=== PATIENT | male | born 1940 | race Caucasian/White ===

== ENCOUNTER → 2023-03-19 09:09 | Outpatient (REF) | payer MEDICARE, OTHER, SELFPAY | LOC: MRI 3T 09:09 | PROVIDERS: ATTENDING PHYSICIAN Physician Assistant Medical; FAMILY PHYSICIAN Family Medicine | DX: M47.817 Spondylosis without myelopathy or radiculopathy, lumbosacral region (principal) | CPT/HCPCS: 72148 ==

== ENCOUNTER → 2023-05-29 08:02 | Outpatient (REF) | payer MEDICARE, OTHER, SELFPAY ==
[2023-05-29 11:40] LABS: ALT (SGPT) 23 U/L (0-50); AST (SGOT) 25 U/L (17-59); Albumin 4.2 g/dl (3.5-5.0); Alkaline Phosphatase 92 U/L (38-126); Blood Urea Nitrogen 24 mg/dl (9-20); Calcium 9.4 mg/dl (8.4-10.2); Carbon Dioxide 31 mmol/L (22-30); Chloride 98 mmol/L (98-107); Glucose 181 mg/dl (70-99); HDL Cholesterol 99 mg/dl; LDL Cholesterol, Calculated 57 mg/dl; Potassium 4.6 mmol/L (3.5-5.1); Sodium 137 mmol/L (135-145); Total Bilirubin 0.6 mg/dl (0.2-1.3); Total Cholesterol 171 mg/dl (50-199); Triglyceride 76 mg/dl (10-149); Very Low Density Lipoprotein 15 mg/dl (0-30); eGFR > 60.00
[2023-05-29 11:54] LABS: Free T4 1.02 ng/dl (0.78-2.19)
[2023-05-29 12:05] LABS: Free T3 3.21 pg/ml (2.77-5.27)
[2023-05-29 12:08] LABS: TSH 0.36 uIU/ml (0.47-4.68)
[2023-05-29 12:20] LABS: Glycohemoglobin (HgbA1c) 8.1 % (4.0-5.6)
== END ==
LOC: HWLAB 08:02
PROVIDERS: ATTENDING PHYSICIAN Internal Medicine Endocrinology, Diabetes & Metabolism; FAMILY PHYSICIAN Family Medicine
DX: E11.65 Type 2 diabetes mellitus with hyperglycemia (principal); Z79.4 Long term (current) use of insulin; E78.5 Hyperlipidemia, unspecified; E05.90 Thyrotoxicosis, unspecified without thyrotoxic crisis or storm
CPT/HCPCS: 36415; 80053; 80061; 83036; 84439; 84443; 84481

== ENCOUNTER → 2023-08-07 08:34 | Outpatient (REF) | payer MEDICARE, OTHER, SELFPAY ==
[2023-08-07 09:47] LABS: % Basophils 0.4 % (0-2); % Eosinophils 2.8 % (0-6); % Immature Granulocytes 0.2 % (0-0.5); % Lymphocytes 30.1 % (20.5-51.1); % Monocytes 7.3 % (1.7-9.3); % Neutrophils 59.2 % (42.2-75.2); Absolute Eosinophils 0.2 10^3/uL (0-0.7); Absolute Lymphocytes 1.6 10^3/uL (1.2-3.4); Absolute Monocytes 0.4 10^3/uL (0.1-0.6); Absolute Neutrophils 3.2 10^3/uL (1.4-6.5); Hematocrit 43.8 % (39.0-52.0); Hemoglobin 14.7 g/dL (13.0-18.0); Mean Corp Hgb Conc. 33.6 g/dL (33.0-37.0); Mean Corpuscular Hgb 31.4 pg (27.0-31.0); Mean Corpuscular Volume 93.6 fL (80.0-94.0); Nucleated Red Blood Cells % 0 % (-); Platelet Count 171 10^3/uL (130-400); Red Blood Cell Count 4.68 10^6/uL (4.70-6.10); Red Cell Dist. Width 13.2 % (11.5-14.5); White Blood Cell Count 5.3 10^3/uL (4.8-10.8)
[2023-08-07 10:13] LABS: INR 1.35; PT 16.8 Sec (11.4-14.6)
[2023-08-07 10:14] LABS: APTT 35.4 Sec (23.4-35.0)
[2023-08-07 10:56] LABS: ALT (SGPT) 27 U/L (0-50); AST (SGOT) 47 U/L (17-59); Albumin 4.4 g/dl (3.5-5.0); Alkaline Phosphatase 88 U/L (38-126); Blood Urea Nitrogen 23 mg/dl (9-20); Calcium 9.3 mg/dl (8.4-10.2); Carbon Dioxide 28 mmol/L (22-30); Chloride 104 mmol/L (98-107); Glucose 107 mg/dl (70-99); Potassium 4.2 mmol/L (3.5-5.1); Sodium 140 mmol/L (135-145); Total Bilirubin 0.6 mg/dl (0.2-1.3); Total Protein 7.1 g/dl (6.3-8.2); eGFR > 60.00
== END ==
LOC: HWLAB 08:34
PROVIDERS: ATTENDING PHYSICIAN Physical Medicine & Rehabilitation; FAMILY PHYSICIAN Family Medicine
DX: Z01.812 Encounter for preprocedural laboratory examination (principal); K92.2 Gastrointestinal hemorrhage, unspecified; I10 Essential (primary) hypertension
CPT/HCPCS: 36415; 80053; 85025; 85610; 85730

== ENCOUNTER → 2023-09-04 09:27 | Outpatient (REF) | payer MEDICARE, OTHER, SELFPAY ==
[2023-09-04 12:41] LABS: Glycohemoglobin (HgbA1c) 8.7 % (4.0-5.6)
== END ==
LOC: HWLAB 09:27
PROVIDERS: ATTENDING PHYSICIAN Physical Medicine & Rehabilitation; FAMILY PHYSICIAN Family Medicine
DX: Z01.812 Encounter for preprocedural laboratory examination (principal); E11.9 Type 2 diabetes mellitus without complications
CPT/HCPCS: 83036

== ENCOUNTER → 2023-10-30 11:26 | Outpatient (REF) | payer MEDICARE, OTHER, SELFPAY | LOC: HWRAD 11:26 | PROVIDERS: ATTENDING PHYSICIAN Internal Medicine Critical Care Medicine; FAMILY PHYSICIAN Family Medicine | DX: J45.40 Moderate persistent asthma, uncomplicated (principal) | CPT/HCPCS: 71046 ==

== ENCOUNTER 2024-01-06 16:15 | Outpatient (RCR) | payer MEDICARE, OTHER, SELFPAY | END 2024-01-10 23:59 | disposition home or self-care (01) | LOC: PURB 16:15 | PROVIDERS: ATTENDING PHYSICIAN Internal Medicine Critical Care Medicine; FAMILY PHYSICIAN Family Medicine | DX: J45.40 Moderate persistent asthma, uncomplicated (principal); J98.4 Other disorders of lung | CPT/HCPCS: 94625; G0237 ==

== ENCOUNTER 2024-02-10 16:15 | Outpatient (RCR) | payer MEDICARE, OTHER, SELFPAY | END 2024-02-10 23:59 | disposition home or self-care (01) | LOC: PURB 16:15 | PROVIDERS: ATTENDING PHYSICIAN Internal Medicine Critical Care Medicine; FAMILY PHYSICIAN Family Medicine | DX: J45.40 Moderate persistent asthma, uncomplicated (principal); J98.4 Other disorders of lung | CPT/HCPCS: 94625 ==

== ENCOUNTER → 2024-02-20 09:18 | Outpatient (REF) | payer MEDICARE, OTHER, SELFPAY ==
[2024-02-20 12:40] LABS: ALT (SGPT) 23 U/L (0-50); AST (SGOT) 22 U/L (17-59); Albumin 4.2 g/dl (3.5-5.0); Alkaline Phosphatase 90 U/L (38-126); Blood Urea Nitrogen 18 mg/dl (9-20); Calcium 8.4 mg/dl (8.4-10.2); Carbon Dioxide 30 mmol/L (22-30); Chloride 101 mmol/L (98-107); Glucose 177 mg/dl (70-99); HDL Cholesterol 92 mg/dl; LDL Cholesterol, Calculated 75 mg/dl; Potassium 4.4 mmol/L (3.5-5.1); Sodium 138 mmol/L (135-145); Total Bilirubin 0.5 mg/dl (0.2-1.3); Total Cholesterol 180 mg/dl (50-199); Total Protein 6.5 g/dl (6.3-8.2); Triglyceride 66 mg/dl (10-149); Very Low Density Lipoprotein 13 mg/dl (0-30); eGFR > 60.00
[2024-02-20 13:05] LABS: TSH 0.25 uIU/ml (0.47-4.68)
[2024-02-20 13:09] LABS: Microalbumin, Random Urine 1.1 mg/dl (0.6-1.7)
[2024-02-20 13:14] LABS: Microalbumin/creatinine Ratio 20.4 mg/g
[2024-02-20 14:05] LABS: Glycohemoglobin (HgbA1c) 9.3 % (4.0-5.6)
== END ==
LOC: HWLAB 09:18
PROVIDERS: ATTENDING PHYSICIAN Internal Medicine Endocrinology, Diabetes & Metabolism; FAMILY PHYSICIAN Family Medicine
DX: E11.65 Type 2 diabetes mellitus with hyperglycemia (principal); Z79.4 Long term (current) use of insulin
CPT/HCPCS: 36415; 80053; 80061; 82043; 82570; 83036; 84443

== ENCOUNTER 2024-03-11 16:15 | Outpatient (RCR) | payer MEDICARE, OTHER, SELFPAY | END 2024-03-12 09:39 | disposition home or self-care (01) | LOC: PURB 16:15 | PROVIDERS: ATTENDING PHYSICIAN Internal Medicine Critical Care Medicine; FAMILY PHYSICIAN Family Medicine | DX: J45.40 Moderate persistent asthma, uncomplicated (principal); J98.4 Other disorders of lung | CPT/HCPCS: 94625 ==

== ENCOUNTER 2024-05-28 10:44 | Emergency (ER) | payer MEDICARE, OTHER, SELFPAY ==
[2024-05-28 10:52] VITALS: BP 128/75
--- NOTE | 2024-05-28 11:18 | ED.GENMED ---
History of Present Illness
<Deloris Matt PA-C - Last Filed: 05/28/24 16:32>
General
Chief Complaint: Circulation Problem
Source: patient and family
Exam Limitations: none
Time Seen by Provider: 05/28/24 11:04
History of Present Illness
History of Present Illness:
83yoM with a history of prior DVT/PE on Xarelto, insulin dependent diabetes, and dementia presenting with his for evaluation of left foot pain. Symptoms began fairly suddenly around 5pm last night. He started to experience a pain in his leg
that radiated down into his foot. noticed that his foot started to look discolored this morning. She called the PCP who advised him to go to the ED for evaluation.
Past History
<Deloris Matt PA-C - Last Filed: 05/28/24 16:32>
Past History
ED Past Medical History: Arrthythmia, HTN, NIDDM and Other (asthma, DVT)
ED Past Surgical History: Negative Cardiac
Social History
Tobacco: Non-smoker
Alcohol: None
Drug: None
Personal:
Living: with family
Employment: Retired
Family History
Family History: Other (Noncontributory)
Phy Exam
<Deloris Matt PA-C - Last Filed: 05/28/24 16:32>
General Physical Exam
General Presentation: well appearing and no apparent distress
General age: appears stated age
General Skin: warm and dry
General Habitus: normal
General Mental: alert
ENT Exam
ENT Exam: normocephalic
Pulmonary Exam
Pulmonary Exam: no respiratory distress
Neurological Exam
Neurological Exam: alert
Musculoskeletal Exam
Musculoskeletal Exam: other (There is what appears to be ecchymosis noted to the dorsum of the L foot with tenderness to light touch. No open wounds noted. No pitting edema to extremity and there is no calf tenderness. Strong DP doppler signal
noted. )
Psychiatric Exam
Psychiatric Exam: normal mood/affect
Course
<Deloris Matt PA-C - Last Filed: 05/28/24 16:32>
Orders/Labs/Results
Orders:
Orders
05/28/24 11:16
CR Foot - Left Min 3 Views Urgent
Comment:
Reason For Exam: pain, bruising
05/28/24 11:22
Lower Ext Arterial & SHANIA US [US Periph Art LOWER Ext w SHANIA] Urgent
Comment:
Reason For Exam: L foot pain/discoloration
05/28/24 11:25
Complete Blood Count/With Diff Urgent
Comprehensive Metabolic Panel Urgent
PTT Urgent
Prothrombin Time Urgent
05/28/24 14:29
Ice Pack-Treatment DIRECTED
Location: R foot
Mendez Wrap Right-Treatment ONCE
Oxycodone/Acetaminophen [Percocet 5/325] 1 tablet PO NOW STA
Abnormal Lab Results
05/28/24
11:25
RBC 4.47 L 10^6/uL
(4.70-6.10)
MCV 96.4 H fL
(80.0-94.0)
MCH 32.2 H pg
(27.0-31.0)
Absolute Lymphs (auto) 1.0 L 10^3/uL
(1.2-3.4)
Lymphocytes % 19.5 L %
(20.5-51.1)
PT 18.2 H Sec
(11.4-14.6)
APTT 41.7 H Sec
(23.4-35.0)
BUN 25 H mg/dl
(9-20)
Glucose 387 H mg/dl
(70-99)
05/28/24 11:25
05/28/24 11:25
Vital Signs
Initial and Last Documented VS:
Initial Vital Signs
Temp Pulse Resp BP Pulse Ox
97.5 F 96 18 128/75 94
05/28/24 10:52 05/28/24 10:52 05/28/24 10:52 05/28/24 10:52 05/28/24 10:52
Last Documented Vital Signs
Temp Pulse Resp BP Pulse Ox
97.5 F 81 16 110/74 95
05/28/24 10:52 05/28/24 13:43 05/28/24 13:43 05/28/24 13:43 05/28/24 13:43
Carlottalt;Claudio Zhang, - Last Filed: 05/28/24 17:12>
Orders/Labs/Results
Orders:
Orders
05/28/24 11:16
CR Foot - Left Min 3 Views Urgent
Comment:
Reason For Exam: pain, bruising
05/28/24 11:22
Lower Ext Arterial & SHANIA US [US Periph Art LOWER Ext w SHANIA] Urgent
Comment:
Reason For Exam: L foot pain/discoloration
05/28/24 11:25
Complete Blood Count/With Diff Urgent
Comprehensive Metabolic Panel Urgent
PTT Urgent
Prothrombin Time Urgent
05/28/24 14:29
Ice Pack-Treatment DIRECTED
Location: R foot
Mendez Wrap Right-Treatment ONCE
Oxycodone/Acetaminophen [Percocet 5/325] 1 tablet PO NOW STA
Abnormal Lab Results
05/28/24
11:25
RBC 4.47 L 10^6/uL
(4.70-6.10)
MCV 96.4 H fL
(80.0-94.0)
MCH 32.2 H pg
(27.0-31.0)
Absolute Lymphs (auto) 1.0 L 10^3/uL
(1.2-3.4)
Lymphocytes % 19.5 L %
(20.5-51.1)
PT 18.2 H Sec
(11.4-14.6)
APTT 41.7 H Sec
(23.4-35.0)
BUN 25 H mg/dl
(9-20)
Glucose 387 H mg/dl
(70-99)
05/28/24 11:25
05/28/24 11:25
Vital Signs
Initial and Last Documented VS:
Initial Vital Signs
Temp Pulse Resp BP Pulse Ox
97.5 F 96 18 128/75 94
05/28/24 10:52 05/28/24 10:52 05/28/24 10:52 05/28/24 10:52 05/28/24 10:52
Last Documented Vital Signs
Temp Pulse Resp BP Pulse Ox
97.5 F 81 16 110/74 95
05/28/24 10:52 05/28/24 13:43 05/28/24 13:43 05/28/24 13:43 05/28/24 13:43
<Deloris Matt PA-C - Last Filed: 05/28/24 16:32>
MDM/Problems Addressed
Differential Diagnosis Includes:
83yoM here with atraumatic L foot pain and discoloration since last night. Currently on Xarelto for history of VTE. Dorsum of the L foot appears ecchymotic on exam with tenderness. There is a strong doppler DP signal noted. Differential diagnosis
includes: contusion, fracture, doubt arterial occlusion, no clinical evidence of infection
Initial ED plan: Check CBC, CMP, coags, foot x-rays, and arterial duplex.
<Deloris Matt PA-C - Last Filed: 05/28/24 16:32>
*Critical Care Note
Total Time (30-74mins, 75-104mins- exclusive of procedures): Not Applicable
<Deloris Matt PA-C - Last Filed: 05/28/24 16:32>
Update Note
Update Note:
Arterial duplex shows multiphasic flow throughout the left leg with no focal or flow-limiting stenosis. There is multiphasic pedal flow. No fractures seen on x-rays per my interpretation, formal radiology report pending. No indication for
hospitalization. Supportive care discussed including RICE. Prescription for oxycodone provided for breakthrough pain. Advised close follow-up with PCP and orthopedics next week. ED return precautions reviewed. Patient and in agreement with
plan and patient discharged in stable condition.
ED Attending Note
<Deloris Matt PA-C - Last Filed: 05/28/24 16:32>
-
Portions of this chart may have been created with voice recognition software.� Occasional wrong word or��sound alike� substitutions may have occurred due to the inherent limitations of voice recognition software.
<Claudio Zhang, - Last Filed: 05/28/24 17:12>
ED Attending Note
Patient seen and examined by attending physician: Yes
I performed the substantive portion of visit, reviewed & personally made and approve the management plan that is documented in note by myself or WILFREDO.: Yes
ED Attending Note:
I agree with Deloris's note
Patient complaining of pain and discoloration left foot.
Exam
Patient has ecchymotic discoloration of lateral and anterior foot lower extremity. Pulses are not readily palpable but are briskly noted with Doppler. Foot is warm, good capillary refill.
Suspect the patient has pain and discoloration from a injury that he may not recall given his dementia. Ankle-brachial indexes are normal.
Discharge Plan
Departure
Patient Disposition: Home (Routine Discharge)
Date of Disposition: 05/28/24
Time of Disposition: 14:30
Patient with high blood pressure during this ER visit?: No
Discharge Problem:
Traumatic ecchymosis of left foot
Instructions: Contusion
Prescriptions:
New
oxycodone 5 mg tablet
5 mg PO Q8H PRN (Reason: Pain) Qty: 9 0RF
No Action
lorazepam 0.5 MG tablet
0.5 mg PO TID
metformin 500 MG tablet
1,000 mg PO BID
atorvastatin 40 MG tablet
40 mg PO QPM
fluticasone propion-salmeterol [Advair Diskus] 1 DISK blister with device
1 puff inhalation BID
albuterol sulfate [Proventil] 2.5 MG/3 ML solution for nebulization
2.5 mg inhalation PRN PRN (Reason: asthma)
sildenafil [Viagra] 50 MG tablet
100 mg PO PRN PRN (Reason: ed)
Patient Comments:
patient unsure of last dose taken
fluvoxamine 50 MG tablet
100 mg PO QPM
epinephrine [EpiPen] 0.3 MG/0.3/SYRINGE auto-injector
0.3 mg IM PRN PRN (Reason: allergic reaction)
Patient Comments:
last used about 2 months ago
clonidine HCl 0.1 MG tablet
0.1 mg PO BID
insulin glargine [Lantus Solostar U-100 Insulin] 300 UNITS/3 ML insulin pen
33 units SC HS
insulin aspart U-100 [Novolog FlexPen U-100 Insulin] 300 UNITS/3 ML insulin pen
0 units SC DAILY
Patient Comments:
80-120 5units; 121-150 6 units; 151-200 7 units; >200 8 units (noted 10/29/15).
pantoprazole 40 MG tablet,delayed release (DR/EC)
40 mg PO DAILY Qty: 30 0RF
rivaroxaban [Xarelto] 20 MG tablet
20 mg PO QPM Qty: 0 0RF
Rx Instructions:
Hold for additional 14 days, then ok to resume.
Referrals:
Sebas Evans MD [Family Provider] -
Walter Gongora MD [Active] -
Activity Restrictions/Additional Instructions:
Rest, ice, compress, and elevate your leg to help with swelling. Take Tylenol 650mg every 6 hours as needed. Take oxycodone only as needed for severe breakthrough pain.
Please follow-up with your family doctor and orthopedics next week. Return to the ER with any new or worsening symptoms.
Interventions
Interventions:
*Risk Screen - Suicide Last Done: 05/28/24 10:52
*General Assessment Last Done: 05/28/24 10:52
*Neglect/Abuse Screening Last Done: 05/28/24 11:30
*ED- Fall Risk Assessment Last Done: 05/28/24 11:30
*ED COVID-19 Vaccine History Last Done: 05/28/24 11:30
*Nursing Disposition Last Done: 05/28/24 14:57
ED-Peripheral Vascular Assessment Last Done: 05/28/24 11:33
Discharge Date and Time
Discharge Date/Time: 05/28/24 14:57
Print Language: SWISS
[2024-05-28 11:29] VITALS: BP 90/62; BMI 22.4
[2024-05-28 11:38] LABS: % Basophils 0.4 % (0-2); % Eosinophils 1.1 % (0-6); % Immature Granulocytes 0.2 % (0-0.5); % Lymphocytes 19.5 % (20.5-51.1); % Monocytes 6.3 % (1.7-9.3); % Neutrophils 72.5 % (42.2-75.2); Absolute Eosinophils 0.1 10^3/uL (0-0.7); Absolute Monocytes 0.3 10^3/uL (0.1-0.6); Absolute Neutrophils 3.8 10^3/uL (1.4-6.5); Hematocrit 43.1 % (39.0-52.0); Hemoglobin 14.4 g/dL (13.0-18.0); Mean Corp Hgb Conc. 33.4 g/dL (33.0-37.0); Mean Corpuscular Hgb 32.2 pg (27.0-31.0); Mean Corpuscular Volume 96.4 fL (80.0-94.0); Mean Platelet Volume 9.9 fL (7.4-10.4); Nucleated Red Blood Cells % 0 % (-); Platelet Count 158 10^3/uL (130-400); Red Blood Cell Count 4.47 10^6/uL (4.70-6.10); Red Cell Dist. Width 13.5 % (11.5-14.5); White Blood Cell Count 5.3 10^3/uL (4.8-10.8)
[2024-05-28 11:54] LABS: INR 1.48; PT 18.2 Sec (11.4-14.6)
[2024-05-28 11:55] LABS: APTT 41.7 Sec (23.4-35.0)
[2024-05-28 12:31] LABS: ALT (SGPT) 24 U/L (0-50); AST (SGOT) 24 U/L (17-59); Albumin 4.2 g/dl (3.5-5.0); Alkaline Phosphatase 91 U/L (38-126); Blood Urea Nitrogen 25 mg/dl (9-20); Calcium 8.9 mg/dl (8.4-10.2); Carbon Dioxide 29 mmol/L (22-30); Chloride 98 mmol/L (98-107); Estimated Creatinine Clearance 65 ml/min; Glucose 387 mg/dl (70-99); Potassium 4.8 mmol/L (3.5-5.1); Sodium 138 mmol/L (135-145); Total Bilirubin 0.7 mg/dl (0.2-1.3); Total Protein 6.5 g/dl (6.3-8.2); eGFR > 60.00
[2024-05-28 12:52] VITALS: BP 110/62
--- NOTE | 2024-05-28 13:33 | CON.VAS ---
Consultation
Consultation Request
Date/Time Consultation Performed: 05/28/2024 1530
Requesting Provider: Deloris Matt PA-C
Performing Provider: RIYA Le
Reason for Consultation: Left foot pain
Medical History
-
Chief Complaint: Left foot pain and ecchymosis
History of Present Illness:
This is an 83 year old male with significant past medical history of DVT, diabetes, dementia, and peripheral neuropathy who presented to [facility] ED reporting acute onset of left foot pain with bruising, which began yesterday evening. Patient
denies any trauma but and patient do endorse he has a history of Alzheimer's. is at bedside and contributing to HPI. Patient believe left foot pain began sometime around 5pm yesterday evening and when he awake this AM he and noted
bruising/discoloration of his feet with accompanying intermittent shooting pain down left leg to foot prompting them to call PCP office. PCP office recommend ED evaluation. Patient denies claudication or rest like pain at BL feet. He does endorse
history of peripheral neuropathy, however he still has sensation at the dorsum of his feet and he does note light palpation to dorsum of left foot over ecchymotic areas is painful. Denies ever seeing a vascular surgeon or requiring vascular
intervention to BL legs. He endorses that having legs dependent makes no difference to pain. He has clear ecchymosis on dorsum of foot extending to all digits and a small area of ecchymosis on the plantar surface. Patient does take Xarelto for
anticoagulation for DVT, which he and say occurred roughly 30 years ago, states he has not missed a dose. At the left foot his TBI 0.88 is within normal range and ultra sound demonstrates flow throughout the leg with no focal or flow-limiting
stenosis appreciated with multiphasic pedal flow. Denies nausea, vomiting, fever, chills, chest pain, or shortness of breath.
Past Medical History
Past Medical History: Arrhythmias (SVT), Asthma, Hypercholesterolemia, IDDM and Other (DVT, dementia, peripheral neuropathy )
Social History
Tobacco: Non-Smoker
Alcohol: None
Drug: None
Personal:
Living: With Family
Allergies / Home Medications
Allergy/AdvReac Type Severity Reaction Status Date / Time
buckwheat Allergy Rash Verified 05/28/24 10:52
haloperidol Allergy Unknown Verified 05/28/24 10:52
iodine Allergy Anaphylaxis Verified 05/28/24 10:52
shellfish derived Allergy Anaphylaxis Verified 05/28/24 10:52
venom-honey bee Allergy Anaphylaxis Verified 05/28/24 10:52
[bee venom (honey bee)]
�Medication �Instructions �Recorded �Confirmed �Type
lorazepam 0.5 mg tablet 0.5 mg PO TID 11/17/08 10/29/15 History
metformin 500 mg tablet 1,000 mg PO BID 04/13/12 10/29/15 History
albuterol sulfate 2.5 mg/3 mL 2.5 mg inhalation PRN PRN asthma 06/01/12 10/29/15 History
(0.083 %) solution for
nebulization (Proventil)
atorvastatin 40 mg tablet 40 mg PO QPM 06/01/12 10/29/15 History
epinephrine 0.3 mg/0.3 mL 0.3 mg IM PRN PRN allergic reaction 06/01/12 10/29/15 History
injection, auto-injector (EpiPen)
fluticasone 250 mcg-salmeterol 50 1 puff inhalation BID 06/01/12 10/29/15 History
mcg/dose blistr powdr for
inhalation (Advair Diskus)
fluvoxamine 50 mg tablet 100 mg PO QPM 06/01/12 10/29/15 History
sildenafil 50 mg tablet (Viagra) 100 mg PO PRN PRN ed 06/01/12 10/29/15 History
clonidine HCl 0.1 mg tablet 0.1 mg PO BID 06/02/12 10/29/15 History
insulin glargine 100 unit/mL (3 33 units SC HS 06/02/12 10/29/15 History
mL) subcutaneous pen (Lantus
Solostar U-100 Insulin)
insulin aspart U-100 100 unit/mL 0 units SC DAILY sliding scale in 10/29/15 10/29/15 History
(3 mL) subcutaneous pen (Novolog pt comme
FlexPen U-100 Insulin aspart)
pantoprazole 40 mg tablet,delayed 40 mg PO DAILY #30 tabs 10/31/15 Rx
release
rivaroxaban 20 mg tablet (Xarelto) 20 mg PO QPM ##0 10/31/15 10/29/15 Rx
Review of Systems
-
History Source: Patient
Constitutional: Reports No Symptoms
EENT: Reports No Symptoms
Respiratory: Reports No Symptoms
Cardiac: Reports No Symptoms
Vascular: Denies Leg Pain / Claudication
Abdomen/GI: Reports No Symptoms
: Reports No Symptoms
Musculoskeletal: Reports Edema (scant edema at left foot)
Skin: Reports Other (bruising on dorsum and plantar area of left foot )
Neurological: Reports No Symptoms
Endocrine: Reports No Symptoms
Physical Exam
Vital Signs
Temp Pulse Resp BP Pulse Ox
97.5 F 81 16 110/62 95
05/28/24 10:52 05/28/24 12:52 05/28/24 12:52 05/28/24 12:52 05/28/24 12:52
Lab Results
05/28/24 11:25
05/28/24 11:25
Physical Exam
General: No Apparent Distress
HEENT: Normocephalic, Anicteric and Atraumatic
Cardiac: Negative JVD
GI: Soft, Non Tender and Non Distended
Musculoskeletal: Edema (+1 edema of left foot and ankle)
Skin: Warm, Dry and Other (significant ecchymosis over dorsum extending to digit of left foot with small circular area of ecchymosis in plantar arch, patient notes pain with light palpation over ecchymotic area, does endorse decreased sensation over
plantar surface chronically from neuropathy )
Neuro: Awake and Alert
Pulses: Bilateral Femoral: +2, Bilateral Dorsalis Pedis: +2 and Bilateral Posterior Tibial: +2
Assessment / Plan
-
Assessment: 83 year old male presented to ED with left foot pain and ecchymosis of left foot vascular consulted for possibility of peripheral arterial disease contributing to pain.
Plan:
Both ultrasound and physical exam support no evidence of peripheral arterial disease. Patient has a normal TBI of .88 and arterial duplex ultrasound with multiphasic flow throughout left leg, and palpable pulses on physical exam. Additionally, he
does not endorse rest pain or claudication style pain. Wound consider deferential of trauma induced pain given severity of ecchymosis and tenderness with palpation over bruised area. No indication for vascular surgical intervention.
HPI, ROS, arterial duplex SHANIA/TBI, and PE reviewed with distribution field engineer physician Dr. Ace Conner III, who agrees patient.
Data Reviewed
-
Ultrasound: Report Reviewed by me, Discussed with Physician and Discussed with Patient
Labs: Labs Reviewed by me
[2024-05-28 13:43] VITALS: BP 110/74
[2024-05-28] MEDS: PERCOCET 5/325 1 TABLET PO (14:42)
== END 2024-05-28 14:57 | disposition home or self-care (01) ==
LOC: EMR 10:44
PROVIDERS: Physician Assistant; EMERGENCY PHYSICIAN Emergency Medicine; FAMILY PHYSICIAN Family Medicine; OTHER PHYSICIAN Nurse Practitioner
DX: S90.32XA Contusion of left foot, initial encounter (principal); X58.XXXA Exposure to other specified factors, initial encounter; E11.42 Type 2 diabetes mellitus with diabetic polyneuropathy; F02.80 Dementia in other diseases classified elsewhere, unspecified severity, without behavioral disturbance, psychotic disturbance, mood disturbance, and anxiety
CPT/HCPCS: 99285; 73630; 80053; 85025; 85610; 85730; 93922; 93925

== ENCOUNTER 2024-06-07 08:42 | Inpatient (IN) | payer MEDICARE, OTHER, SELFPAY ==
[2024-06-05 14:54] VITALS: BP 123/74
--- NOTE | 2024-06-05 17:38 | ED.GENMED ---
History of Present Illness
General
Chief Complaint: Musculo-Skeletal Complaint
Source: patient
Exam Limitations: none
Time Seen by Provider: 06/05/24 17:04
Nursing documentation reviewed up to this point in time: agreed with
History of Present Illness
History of Present Illness:
The patient is an 83-year-old man with a past medical history of A-fib on Xarelto who comes in with complaints of fairly sudden onset of pain, redness and swelling of the top of his left foot. Patient reports that earlier today he developed a
'weird discomfort that seem to start in the outer aspect of his left thigh, run down his left lower leg and settled into the top of his left foot, resulting in severe pain and redness of the left foot.' The patient reports that he had a very
similar occurrence about 8 days ago when he came to the emergency department for discoloration and pain of the top of his left foot. At that time, he underwent an x-ray of the left foot which showed no trauma and additionally underwent an arterial
ultrasound of both lower extremities which came back normal. Patient reports that his symptoms 8 days ago eventually went away completely until today when he suddenly came back. Patient reports chronic numbness at the bottom of both feet due to
his diabetes. Patient reports he is completely compliant with his Xarelto. He denies fever and chills. Patient reports the top of his left foot is extremely sensitive and tender to the touch, as even light touch is extremely uncomfortable.
Past History
Past History
ED Past Medical History: Arrthythmia, HTN, NIDDM and Other (asthma, DVT)
ED Past Surgical History: Orthopedic
Social History
Tobacco: Non-smoker
Alcohol: None
Drug: None
Personal:
Living: with family
Employment: Retired
Family History
Family History: Other (Noncontributory)
Review of Systems
Review of Systems
Allergies reviewed?: Yes
All Other Systems: ROS reviewed and negative except as documented in HPI and ROS
Constitutional: Reports no symptoms
EENT: Reports no symptoms
Respiratory: Reports no symptoms
Cardiac: Reports no symptoms
ABD/GI: Reports no symptoms
: Reports no symptoms
Musculoskeletal: Reports edema
Skin: Reports other
Neurological: Reports no symptoms
Endocrine: Reports no symptoms
Hematologic/Lymphatic: Reports no symptoms
Psychiatric: Reports no symptoms
Phy Exam
Physical Exam
Physical Exam:
Physical Exam
General: no apparent distress, not acutely ill. Well appearing
Neck: supple. no meningeal signs. normal psoterior pharynx
Heart: s1/s2 regular rate and rhythm, no murmur. equal radial pulses.
Lungs: no acute respiratory distress. clear bilaterally
Abdomen: normal bowel sounds. not tender. no CVAT
Neuro: alert and oriented. no focal neurological deficits
Skin: Warm erythema of skin of top of left foot that is exquisitely tender to the touch, even light touch by his sheet. Mild erythema and swelling of left anterior lower leg.
Psychiatric: well kept. interactive and cooperative
Extremities: Diffuse soft tissue tenderness of left lower extremity including anterior and posterior calf and left foot, with specific tenderness along top of left foot. Strong bounding pulses of right lower extremity.
Pulses of left foot are felt less easily but obviously heard by Doppler
Course
Orders/Labs/Results
Orders:
Orders
06/05/24 17:36
US Legs, Left [US Periph Venous LOWER Ext LT] Stat
Comment:
Reason For Exam: red, swollen left foot and lower leg
06/05/24 17:46
Electrocardiogram (*1) Urgent
Reason for Study: Other
Other Reason for Exam: history of afib
06/05/24 17:47
Complete Blood Count/With Diff Urgent
Comprehensive Metabolic Panel Urgent
Uric Acid Urgent
Comment: ADD ON
06/05/24 17:48
EKG- Treatment ONCE
06/05/24 17:50
Diphenhydramine [Benadryl] 50 mg IV NOW STA
06/05/24 17:55
Hydrocortisone Sod Succinate [Solu-Cortef] 200 mg IV NOW STA
06/05/24 18:44
CT Abd Aorta Angio W/ Run Off Urgent
Comment:
Reason For Exam: left foot redness and swelling
06/05/24 20:51
Add On- LAB Urgent
Tests Added?: uric acid
06/05/24 22:16
Admit/Transfer Patient As Directed
Co-Sign Provider:
Level of Care: Observation services
Assign to:: Medical/Surgical
Physician / Group: hospitalist
Diagnosis: cellulitis
CeFAZolin 1 GRAM [Ancef] 1 gram in 5 ml IV NOW
PRN Pain Medication Management As Directed
May give lesser potent ordered pain med per pt: Yes
preference::
Protocol:: Medication orders for pain may be administered in a
manner that supports deferring to patient preference
when the pt is:
- Requesting an ordered lesser potent pain medication.
Least to most potent pain medications are defined
as: acetaminophen < NSAID < tramadol < opioids
(morphine, oxycodone, hydromorphone).
- Requesting a lesser dose of the same medication IF
ORDERED.
- Requesting a less intrusive route of administration
if both routes are prescribed by the provider (PO <
IV).
06/05/24 22:19
Code Status As Directed
Resuscitation Status: Full Code
06/05/24 22:26
D-Dimer Urgent
Rivaroxaban [Xarelto] 20 mg PO ONCE STA
Abnormal Lab Results
06/05/24
17:47
RBC 4.34 L 10^6/uL
(4.70-6.10)
MCV 96.3 H fL
(80.0-94.0)
MCH 31.8 H pg
(27.0-31.0)
Carbon Dioxide 32 H mmol/L
(22-30)
BUN 26 H mg/dl
(9-20)
Glucose 107 H mg/dl
(70-99)
06/05/24 17:47
06/05/24 17:47
Vital Signs
Initial and Last Documented VS:
Initial Vital Signs
Temp Pulse Resp BP Pulse Ox
98.5 F 79 16 123/74 95
06/05/24 14:54 06/05/24 14:54 06/05/24 14:54 06/05/24 14:54 06/05/24 14:54
Last Documented Vital Signs
Temp Pulse Resp BP Pulse Ox
98.5 F 71 20 112/72 97
06/05/24 14:54 06/05/24 22:17 06/05/24 22:17 06/05/24 22:17 06/05/24 22:17
MDM/Problems Addressed
Differential Diagnosis Includes:
Acute ischemia of left lower extremity, DVT of left lower extremity, gout, cellulitis
MDM/Problems Addressed:
Patient presents with acute pain and redness of left lower extremity, specifically his foot
Chronic conditions affecting care:
Atrial fibrillation
Chronic conditions affecting care: Arrhythmia
Acute Exacerbation and/or Progression of Chronic Illness:
Patient may have emboli due to history of A-fib
*Radiology
Radiology exam reviewed: radiology read reviewed
*Pulse Oximetry
Patient hypoxic: no
*EKG
Interpreted by ED Provider?: Yes
Interpretation: abnormal
Comparison EKG: no changes
Rate: normal
Rhythm: sinus
Blanco: normal axis
Interval: normal interval
QRS Pattern: normal QRS
Ischemia: non-specific ST changes
*Complaint Adjuster Interpretation
Rate: normal
Interpretation: normal
Rhythm: sinus
*Critical Care Note
Total Time (30-74mins, 75-104mins- exclusive of procedures): Not Applicable
Data Reviewed
Review of Other/Old Records Reveals: Radiology Studies (05/28/2024 shows no fracture left foot)
Source: patient and spouse
Patient Management
Social determinants of health affecting care: Living situation and Strong social support
Discussion with other providers: Hospitalist and Other (Dr. Hayes and Dr. White)
Escalation/DeEscalation of care consider admission/obs:
Case discussed with Dr. Hayes. I discussed CTA and nothing emergent to do at this time given that patient has no symptoms on the right side.
Case also discussed with Dr. Shankar who felt that patient's clot being chronic did not warrant heparin. We will order D-dimer to confirm that clot does not have an acute nature.
ED Attending Note
-
Portions of this chart may have been created with voice recognition software.� Occasional wrong word or��sound alike� substitutions may have occurred due to the inherent limitations of voice recognition software.
Discharge Plan
Departure
Patient Disposition: Admit
Date of Disposition: 06/05/24
Time of Disposition: 21:52
Admit to: Med/Surg
Presentation/result/management discussed w/ accepting MD/DO: Hospitalist
Patient with high blood pressure during this ER visit?: No
Condition: Good
Covid-19: Not Applicable
Discharge Problem:
Cellulitis of foot, left
Interventions
Interventions:
*Risk Screen - Suicide Last Done: 06/05/24 14:55
*General Assessment Last Done: 06/05/24 16:05
*Neglect/Abuse Screening Last Done: 06/05/24 14:55
ED-Musculoskeletal Assessment Last Done: 06/05/24 16:06
[2024-06-05 19:27] LABS: % Basophils 0.5 % (0-2); % Eosinophils 3.2 % (0-6); % Immature Granulocytes 0.3 % (0-0.5); % Lymphocytes 28.2 % (20.5-51.1); % Monocytes 8.4 % (1.7-9.3); % Neutrophils 59.4 % (42.2-75.2); Absolute Eosinophils 0.2 10^3/uL (0-0.7); Absolute Lymphocytes 1.9 10^3/uL (1.2-3.4); Absolute Monocytes 0.6 10^3/uL (0.1-0.6); Hematocrit 41.8 % (39.0-52.0); Hemoglobin 13.8 g/dL (13.0-18.0); Mean Corpuscular Hgb 31.8 pg (27.0-31.0); Mean Corpuscular Volume 96.3 fL (80.0-94.0); Nucleated Red Blood Cells % 0 % (-); Platelet Count 162 10^3/uL (130-400); Red Blood Cell Count 4.34 10^6/uL (4.70-6.10); Red Cell Dist. Width 13.3 % (11.5-14.5); White Blood Cell Count 6.6 10^3/uL (4.8-10.8)
[2024-06-05 19:29] VITALS: BP 114/74
[2024-06-05 19:44] LABS: ALT (SGPT) 22 U/L (0-50); AST (SGOT) 21 U/L (17-59); Albumin 4.1 g/dl (3.5-5.0); Alkaline Phosphatase 81 U/L (38-126); Blood Urea Nitrogen 26 mg/dl (9-20); Carbon Dioxide 32 mmol/L (22-30); Chloride 101 mmol/L (98-107); Glucose 107 mg/dl (70-99); Potassium 4.3 mmol/L (3.5-5.1); Sodium 142 mmol/L (135-145); Total Bilirubin 0.5 mg/dl (0.2-1.3); Total Protein 6.9 g/dl (6.3-8.2); eGFR > 60.00
[2024-06-05 19:54] LABS: Calcium 9.3 mg/dl (8.4-10.2)
[2024-06-05 21:33] LABS: Uric Acid 3.9 mg/dl (3.5-8.5)
--- NOTE | 2024-06-05 21:48 | HPS.HSE ---
Family Physician
-
Family Physician: Sebas Evans
Chief Complaint
-
Left leg pain and swelling
History of Present Illness
This is a 83-year-old male with past medical history significant for chronic DVT,PE s/p IVC filter, atrial fibrillation on anticoagulation, hypertension, asthma, COPD not on home O2, IDDM, presenting to the emergency department with pain and
swelling of the left lower extremity.
Patient was seen in the emergency department a few days ago for similar issue. He said at that time he had a little black eschar on the dorsum of his left foot. He was given some pain medications and discharged. He said that actually improved
however over the last day he had worsening pain. He reports pain with putting pressure on the foot. He denied any fevers or chills. He says the pain radiates up his legs. He also has redness around the foot. The redness is not traveling up his
legs. He has no fevers or chills. He denies any recent antibiotic use. He is not on any immunosuppressants.
In the emergency department he was afebrile, blood pressure was 114/74 with a pulse of 74 and was satting 95% on room air.
CBC is unremarkable. Electrolytes BUN and creatinine were all in the normal range.
He had ultrasound of the lower extremity which shows DVT that there is chronic appearing. It been present on previous ultrasounds. He also had a CT angiogram which shows extensive diffuse atheromatous disease. There is extensive disease in the
right lower extremity with loss of contrast opacification within the right mid femoral artery and no contrast in the distal femoral popliteal and calf arteries which were heavily calcified however on delayed phase there is some contrast
opacification of the mid and distal femoral artery. The left lower extremity has less disease with patent vessels except for a diminutive and irregular dorsalis pedis artery with possible discontinuous opacification on delayed phase.
Medical History
Past Medical History
Past Medical History: Reports Arrhythmia (Atrial fibrillation/atrial flutter, status post ablation, left atrial thrombus), Asthma, COPD, HTN, IDDM and Other (Chronic DVT)
Past Surgical History: Reports Orthopedic (Right hip replacement)
Additional Past Surgical History:
IVC filter
Social History
Tobacco: Non-smoker
Alcohol: None
Drug: None
Personal:
Living: With Family
Employment: Retired
Family History
Family History: Not pertinent
Allergies / Home Medications
Allergies reflects when Allergies were last updated in [facility].
Home Medications with original date entered in [facility]
Allergy/Medication List:
CloNIDine HCl 0.1 MG take 1 tablet by oral route 2 times every day Oral Active
Fluticasone-Salmeterol 232-14 MCG/ACT USE 1 INHALATION BY MOUTH TWICE DAILY RINSE MOUTH AFTER USE for 90 Active
Xarelto 20 MG TAKE 1 TABLET BY MOUTH DAILY WITH EVENING MEAL for 90 Active
Lantus SoloStar 100 UNIT/ML 34U Subcutaneous Once a Day Active
Jardiance 10 MG 1 tablet Orally Once a day Active
Atorvastatin Calcium 40 MG TAKE 1 TABLET BY MOUTH ONCE DAILY for 90 Active
Simbrinza 1-0.2 % 1 drop into affected eye Ophthalmic Three times a day twice a day Active
NovoLOG FlexPen 100 UNIT/ML Subcutaneous Active
fluvoxaMINE Maleate ER 100 MG 1 capsule at bedtime Orally Once a day for 30 day(s) Aug, Active
metFORMIN HCl 1000 MG take 1 tablet by oral route 2 times every day with morning and evening meals Oral Active
Donepezil HCl 10 MG 1 tablet at bedtime Orally Once a day for 30 day(s) Active
EPINEPHrine 0.3 MG/0.3ML as directed Injection Now for 1 days PRN Feb, Active
Ritalin 5 MG 1 tablet on an empty stomach Orally Once a Day Not-Taking/PRN
Albuterol Sulfate (2.5 MG/3ML) 0.083% 3 ml as needed Inhalation every 6 hrs for 30 day(s) PRN- Oct, Active
Memantine HCl 5 MG 1 tablet Orally Once a day 4 times a day Active
Albuterol Sulfate HFA 108 (90 Base) MCG/ACT USE 2 INHALATIONS BY MOUTH EVERY 4 TO 6 HOURS NEEDED for 90 days Active
Lidocaine 4 % 1 application to affected area as needed Externally Twice a Day PRN Active
Gabapentin 300 MG 1 capsule Orally Four Times a Day for 30 day(s) Active
Review of Systems
-
History Source: Patient
Constitutional: Reports No Symptoms
EENT: Reports No Symptoms
Respiratory: Reports No Symptoms
Cardiac: Reports No Symptoms
Abdomen/GI: Reports No Symptoms
: Reports No Symptoms
Musculoskeletal: Reports No Symptoms
Skin: Reports Rash
Neurological: Reports No Symptoms
Endocrine: Reports No Symptoms
Hematologic/Lymphatic: Reports No Symptoms
Psych: Reports No Symptoms
Physical Exam
Vital Signs
Vital Signs
Temp Pulse Resp BP Pulse Ox
98.5 F 74 20 114/74 95
06/05/24 14:54 06/05/24 19:29 06/05/24 19:29 06/05/24 19:29 06/05/24 19:29
Physical Exam
General: Well Developed, Well Nourished, No Apparent Distress and Comfortable
HEENT: NormoCephalic, Anicteric, Moist mucous membranes, Atraumatic and Hearing Impaired
Respiratory: Clear
Cardiac: S1/S2 and Regular Rhythm
Breast: Deferred by me
GI: Soft, Non Tender and Non Distended
Rectal: Deferred by Provider
Genito-urinary: Deferred by me
Musculoskeletal: No Clubbing, No Cyanosis and No Edema
Skin: Rash (painful raised red lesion on the dorsum of the left foot. There is surrounding erythema in the distal left foot. Pulses intact. )
Neuro: AO x 3 and Nonfocal/grossly intact
Hematologic/Lymphatic: No Lymphadenopathy
Psych: Calm
Laboratory Results
-
06/05/24 17:47
06/05/24 17:47
Laboratory Results
Total Bilirubin 0.5 mg/dl (0.2-1.3) 06/05/24 17:47
AST 21 U/L (17-59) 06/05/24 17:47
ALT 22 U/L (0-50) 06/05/24 17:47
Alkaline Phosphatase 81 U/L (38-126) 06/05/24 17:47
Data Reviewed
-
CT Scan: Report Reviewed by me
Ultrasound: Report Reviewed by me
Lab Data: Labs Reviewed by me and Discussed with Physician
Old Records: Reviewed
Impression/Plan
-
IMPRESSION:
83-year-old with history of PE/DVT, atrial fibrillation, is on chronic anticoagulation and has a chronic left lower extremity DVT presents to the emergency department with redness and swelling in the left lower extremity. Complains of shooting pain
with pressure when he attempts to walk on that feet. No fevers or chills. On my examination there is painful tender plaque with erythema and mild induration. There is distal erythema of the whole foot. This is suggestive of cellulitis. The rest
of the leg appears normal. There is no edema in the leg otherwise. Pulses were intact. The ultrasound again shows a chronic DVT. Case discussed with hematology Dr. Aguilera will knows the patient very well and they does not believe this is a new
thrombus. CT scan shows multiple areas of atheromatous disease. Appears to also have chronic atherosclerotic peripheral arterial disease and but no critical occlusion at this time that is the cause of his symptoms.
PLAN:
Cellulitis - acute pain, swelling, tenderness and erythema c/w acute cellulitis. Non-purulent. Diabetes but no ulcer. No risk factors.
- admit to med/surg observation
- IV cefazolin for now
- keep leg elevated
- pain control
DVT - Discussed extensively with Dr. Aguilera. Feels clot is chronic and has been previously seen. Patient is appropriately anticoagulated on Xarelto and is compliant. I agree based on my examination that this is not cerulea dolens at all.
- will continue Xarelto as recommended. He will be anticoagulated indefinitely
- check d-dimer and pt/inr
- serial examinations
- no need for further heme consult
PAD - Diffuse atherosclerosis but clearly not the etiology of his pain. Some significant stenosis noted. Possible claudication on history.
- Dr. Hayes graciously agrees to see patient in am
- continue Xarelto
- continue statin
AFIB
- rate controllled
- AC on Xarelto
HTN
- continue clonidin
DM II
- lantus 34 daily
- continue jardiance a
- hold metformin x 24 hours
- sliding scale insulin
DVT PPX - on Xarelto
Code Status - Full Code
[2024-06-05 22:17] VITALS: BP 112/72
[2024-06-05] MEDS: ANCEF 5 IV (22:28)
[2024-06-05] MEDS: XARELTO 20 MG PO (22:42)
[2024-06-05 23:21] LABS: D-Dimer 0.99 ug/mlFEU (0.00-0.50)
--- NOTE | 2024-06-06 00:40 | PTCARENOTE ---
Pt arrived from ED via stretcher, oob to bed with steady gait. aaox3, cooperative. vss. denies pain, nausea or sob. oriented to room. call patel within reach.
[2024-06-06 00:46] VITALS: BP 134/76; BMI 21.3
[2024-06-06 01:39] VITALS: BMI 21.3
[2024-06-06] MEDS: NEURONTIN PO ×2 (01:41→06:02)
[2024-06-06] MEDS: ANCEF 10 IV ×3 (06:06→21:40)
[2024-06-06 06:23] LABS: PT 23.7 Sec (11.4-14.6)
[2024-06-06 06:42] LABS: Blood Urea Nitrogen 26 mg/dl (9-20); Calcium 8.8 mg/dl (8.4-10.2); Carbon Dioxide 32 mmol/L (22-30); Chloride 102 mmol/L (98-107); Estimated Creatinine Clearance 67 ml/min; Glucose 164 mg/dl (70-99); Potassium 4.3 mmol/L (3.5-5.1); Sodium 140 mmol/L (135-145); eGFR > 60.00
[2024-06-06 07:22] VITALS: BP 131/72
[2024-06-06] MEDS: ADVAIR HFA 115/21 MCG INHALER 2 PUFF INH ×2 (07:25→19:28)
[2024-06-06 07:57] LABS: Glucose - Point of Care 128 mg/dl (70-99)
[2024-06-06] MEDS: NOVOLOG FLEXPEN-MODERATE RESISTANCE SC (08:12)
[2024-06-06] MEDS: FARXIGA 10 MG PO (08:12)
[2024-06-06] MEDS: NAMENDA 5 MG PO ×2 (08:13→19:42)
[2024-06-06] MEDS: SIMBRINZA 1%-0.2% OPHTH SUSP 1 DROP OPHTH ×3 (08:14→21:43)
[2024-06-06] MEDS: CATAPRES 0.1 MG PO ×2 (08:14→19:42)
[2024-06-06] MEDS: FLUSH (NSS) 1 FLUSH IV ×2 (08:14→13:55)
[2024-06-06 10:35] VITALS: BMI 21.3
--- NOTE | 2024-06-06 10:48 | CON.VAS ---
Consultation
Consultation Request
Date/Time Consultation Performed: 06/06/24. 10:45am
Performing Provider: Freddy
Reason for Consultation: L foot pain, possible PAD
Medical History
-
Chief Complaint: L foot pain/swelling
History of Present Illness:
83-year-old male evaluated in the emergency room and admitted to the hospital. Has left foot pain and some swelling. Was brought by his . Patient has some possible dementia and well hard of hearing per his son who is at the bedside and filled
in history as needed. Extensive medical history including diabetes, hypertension, COPD, A-fib, DVT/PE with IVC filter in place. He noted increasing left foot pain which is what prompted his to bring him to the hospital. No weakness. Not
really a positional thing. In addition more so than pain it was tenderness. No ulcerations.
Past Medical History
Past Medical History: Arrhythmias, COPD, HTN, IDDM and Other (DVT/PE)
Social History
Tobacco: Non-Smoker
Allergies / Home Medications
Allergy/AdvReac Type Severity Reaction Status Date / Time
buckwheat Allergy Rash Verified 05/28/24 10:52
haloperidol Allergy Unknown Verified 05/28/24 10:52
iodine Allergy Anaphylaxis Verified 05/28/24 10:52
shellfish derived Allergy Anaphylaxis Verified 05/28/24 10:52
venom-honey bee Allergy Anaphylaxis Verified 05/28/24 10:52
[bee venom (honey bee)]
�Medication �Instructions �Recorded �Confirmed �Type
lorazepam 0.5 mg tablet 0.5 mg PO TID 11/17/08 10/29/15 History
metformin 500 mg tablet 1,000 mg PO BID 04/13/12 10/29/15 History
albuterol sulfate 2.5 mg/3 mL 2.5 mg inhalation PRN PRN asthma 06/01/12 10/29/15 History
(0.083 %) solution for
nebulization (Proventil)
atorvastatin 40 mg tablet 40 mg PO QPM 06/01/12 10/29/15 History
epinephrine 0.3 mg/0.3 mL 0.3 mg IM PRN PRN allergic reaction 06/01/12 10/29/15 History
injection, auto-injector (EpiPen)
fluticasone 250 mcg-salmeterol 50 1 puff inhalation BID 06/01/12 10/29/15 History
mcg/dose blistr powdr for
inhalation (Advair Diskus)
fluvoxamine 50 mg tablet 100 mg PO QPM 06/01/12 10/29/15 History
sildenafil 50 mg tablet (Viagra) 100 mg PO PRN PRN ed 06/01/12 10/29/15 History
clonidine HCl 0.1 mg tablet 0.1 mg PO BID 06/02/12 10/29/15 History
insulin glargine 100 unit/mL (3 33 units SC HS 06/02/12 10/29/15 History
mL) subcutaneous pen (Lantus
Solostar U-100 Insulin)
insulin aspart U-100 100 unit/mL 0 units SC DAILY sliding scale in 10/29/15 10/29/15 History
(3 mL) subcutaneous pen (Novolog pt comme
FlexPen U-100 Insulin aspart)
pantoprazole 40 mg tablet,delayed 40 mg PO DAILY #30 tabs 10/31/15 Rx
release
rivaroxaban 20 mg tablet (Xarelto) 20 mg PO QPM ##0 10/31/15 10/29/15 Rx
oxycodone 5 mg tablet 5 mg PO Q8H PRN Pain #9 tabs 05/28/24 Rx
Physical Exam
Vital Signs
Temp Pulse Resp BP Pulse Ox
98.3 F 60 18 131/72 96
06/06/24 07:22 06/06/24 08:14 06/06/24 07:30 06/06/24 08:14 06/06/24 08:06
Lab Results
06/05/24 17:47
06/06/24 05:42
Physical Exam
General: Well Developed, No Apparent Distress and Comfortable
HEENT: Normocephalic, Anicteric and Atraumatic
Respiratory: Non Labored Respirations
Skin: Warm, Dry and Other (Both feet warm, no rubor/ulcerations. L foot slightly swollen compared to right, soft. Mildly tender diffusely. )
Neuro: Awake and Alert
Psych: Calm
Pulses: Bilateral Femoral: +2, Bilateral Popliteal: +2, Right Dorsalis Pedis: +2 and Left Posterior Tibial: +2
Assessment / Plan
-
Left foot pain/tenderness.
�CT angiogram images reviewed by me. I reviewed the report. While it notes that there may be occlusion below the knee on the right side in the arteries, I do not think this is true. It appears to be a function of timing of contrast (slow transit
of contrast). His exam demonstrates an easily palpable 2+ right DP and an easily palpable 2+ left PT pulse. Therefore while he has atherosclerotic calcifications throughout his arteries, I do not think this is a vascular mediated left foot
pain/tenderness. He does have chronic DVTs (CT scan shows calcifications in his veins). However there is no acute DVT. Therefore I do not think this is a venous driven pathology either. Could be a cellulitis or gout or other inflammatory
condition. Regardless and nothing there is anything for me to offer from a vascular perspective. I discussed with the patient and his son at the bedside. Will sign off. Please call with questions. He can follow-up with me in general in the
office for vascular/arterial surveillance in the future.
--- NOTE | 2024-06-06 11:24 | W.PN.HOSP.TC ---
Today's Communication/Plan
-
Continue antibiotics
Assessment / Plan
Assessment / Plan
Impression:
83-year-old with history of PE/DVT, atrial fibrillation, is on chronic anticoagulation and has a chronic left lower extremity DVT presents to the emergency department with redness and swelling in the left lower extremity. Complains of shooting pain
with pressure when he attempts to walk on that feet. No fevers or chills. On my examination there is painful tender plaque with erythema and mild induration. ultrasound again shows a chronic DVT. Continues Xarelto, CT scan shows multiple areas
of atheromatous disease. seen by vascular surgery, no intervention, vascular signed off.
Assessment/plan:
Cellulitis - acute pain, swelling, tenderness and erythema c/w acute cellulitis. Non-purulent. Diabetes but no ulcer.
- admit to med/surg observation
- IV cefazolin for now
- keep leg elevated
- pain control
DVT - Discussed extensively with Dr. Aguilera. Feels clot is chronic and has been previously seen. Patient is appropriately anticoagulated on Xarelto and is compliant. I agree based on my examination that this is not cerulea dolens at all.
- will continue Xarelto as recommended. He will be anticoagulated indefinitely
- check d-dimer and pt/inr
- serial examinations
- no need for further heme consult
PAD - Diffuse atherosclerosis but clearly not the etiology of his pain. Some significant stenosis noted. Possible claudication on history.
- Dr. Hayes evaluated the patient, no intervention, vascular surgery signed off.
- continue Xarelto
- continue statin
Paroxysmal A-fib
- Sinus rhythm, rate controllled
- AC on Xarelto
HTN
- continue clonidin
DM II
- lantus 34 daily
- continue jardiance a
- hold metformin x 24 hours
- sliding scale insulin
CODE STATUS: Full code
DVT prophylaxis: Xarelto
Diet: Regular diet
Total time spent on today's encounter was 55 minutes which included time spent in counseling the patient/family regarding diagnosis and treatment plan as listed above, goals of care, and symptom management. Case was discussed with nursing staff,
specialists, and care coordinators/case management. All labs and imaging personally reviewed by me. Remainder the time spent in detailed review of previous records, lab data, imaging, and other medical provider documentation.
Anticipated Discharge: Within 24 hours
Subjective/Interval History
-
Date of Service: June 06, 2024
Patient seen and examined at bedside, denies any chest pain or shortness of breath, no abdominal pain, no nausea, no vomiting, no diarrhea or constipation.
Left foot pain, swelling improved, seen by vascular surgery and no intervention, vascular surgery signed off.
Objective Data
-
Labs:
Laboratory Results
06/06/24
05:42
PT 23.7 H
INR 2.10
Sodium 140
Potassium 4.3
Chloride 102
Carbon Dioxide 32 H
BUN 26 H
Creatinine 0.8
Glucose 164 H
Calcium 8.8
Vital Signs:
Vital Signs
Temp Pulse Resp BP Pulse Ox
98.3 F 60 18 131/72 96
06/06/24 07:22 06/06/24 08:14 06/06/24 07:30 06/06/24 08:14 06/06/24 08:06
I&O
06/05/24 06/06/24 06/07/24
06:59 06:59 06:59
Intake Total 0 / 0
Balance 0 / 0
Physical Exam
-
General: Well Developed, Well Nourished, No Apparent Distress and Comfortable
HEENT: Normocephalic, Atraumatic, Moist Mucous Membranes, No Ptosis, PERRLA and Nose Appears Normal
Respiratory: Clear to Auscultation and Non Labored Respirations
Cardiac: Regular Rhythm and S1/S2
Breast: Deferred by me
GI: Soft, Nontender, Nondistended and Normal Bowel Sounds
Genito-urinary: No Costovertebral Tender
Musculoskeletal: No Clubbing, No Cyanosis and Other (Left foot dorsal aspect with mild tenderness /redness)
Skin: Warm
Neuro: Awake, Alert, Oriented, AO x 3 and No Motor Deficits
Psych: Calm
Data Reviewed
-
Diagnostic Radiology: Image personally visualized and interpreted and Report Reviewed by me
CT Scan: Image personally visualized and interpreted and Report Reviewed by me
Ultrasound: Image personally visualized and interpreted and Report Reviewed by me
MRI: Image personally visualized and interpreted and Report Reviewed by me
Medical Tests (Nuc Med, Echo etc): Image personally visualized and interpreted and Report Reviewed by me
Labs: Labs Reviewed by me
Old Records: Reviewed
[2024-06-06] MEDS: NEURONTIN 300 MG PO ×2 (12:07→17:31)
[2024-06-06 12:11] LABS: Glucose - Point of Care 185 mg/dl (70-99)
[2024-06-06] MEDS: NOVOLOG FLEXPEN-MODERATE RESISTANCE 1 UNITS SC ×2 (12:11→17:30)
--- NOTE | 2024-06-06 12:50 | CM ---
Patient seen bedside w/ spouse, initial assessment completed. Patient is a 83-year-old male with past medical history significant for chronic DVT,PE s/p IVC filter, atrial fibrillation on anticoagulation, hypertension, asthma, COPD not on home O2,
IDDM, presenting to the emergency department with pain and swelling of the left lower extremity.
Patient resides w/ spouse in a 2ST[facility]- 2 steps to enter. Per spouse, their son comes home from time to time. Patient is independent w/ ambulating, no device required. Patient is primarily independent w/ ADLs. Per spouse, patient has been having issues
w/ incontinence and been needing to be woken up in the middle of the night. Patient has commode and nebulizer in the home. No SNF hx reported, prev engaged in pulm rehab at [facility], OP therapy in the past. Patient currently goes to a pain center in
[place] for shots in his back. Per spouse, patient is a part of a medicare program called [employer] which is for Alzheimer patients where patient sees a VN once a month.
Address, point of contact and insurance verified
PCP: Sebas Evans
Pharmacy: [facility] for mail orders
Patient is currently admitted as obs. VALENZUELA form verbally reviewed, copy given to spouse, copy on chart
Plan: CM will cont to follow for d/c planning
[2024-06-06 15:09] VITALS: BP 121/82
[2024-06-06 16:40] LABS: Glucose - Point of Care 163 mg/dl (70-99)
--- NOTE | 2024-06-06 16:46 | PTCARENOTE ---
Pt AAO x3, CHA well, OOB in chair/ambulatory to BR; no c/o weakness/dizziness. Denies discomfort to LLE. Pt very SLEETMUTE. VSS. On room air- pulse ox 96%, no SOB noted. Abd soft, rounded, sylvia PO well. Voids in BR without difficulty. Resting in
chair at present. Will continue to monitor.
[2024-06-06] MEDS: LIPITOR 40 MG PO (17:31)
[2024-06-06] MEDS: LUVOX 100 MG PO (17:31)
[2024-06-06] MEDS: XARELTO 20 MG PO (17:31)
[2024-06-06 20:00] VITALS: BMI 21.3
[2024-06-06] MEDS: ARICEPT 10 MG PO (20:30)
[2024-06-06 21:32] LABS: Glucose - Point of Care 212 mg/dl (70-99)
[2024-06-06] MEDS: LANTUS 0.2 UNITS SC (21:40)
[2024-06-06 23:46] VITALS: BP 137/82
[2024-06-07] MEDS: NEURONTIN PO (01:00)
[2024-06-07] MEDS: ANCEF 10 IV ×2 (05:12→13:20)
[2024-06-07] MEDS: NEURONTIN 300 MG PO ×2 (05:12→13:19)
[2024-06-07] MEDS: ADVAIR HFA 115/21 MCG INHALER 2 PUFF INH (07:28)
[2024-06-07 07:34] LABS: Glucose - Point of Care 74 mg/dl (70-99)
[2024-06-07 07:35] VITALS: BP 126/79
[2024-06-07] MEDS: NOVOLOG FLEXPEN-MODERATE RESISTANCE SC (08:45)
[2024-06-07] MEDS: CATAPRES 0.1 MG PO (09:18)
[2024-06-07] MEDS: FARXIGA 10 MG PO (09:18)
[2024-06-07] MEDS: NAMENDA 5 MG PO (09:19)
[2024-06-07] MEDS: SIMBRINZA 1%-0.2% OPHTH SUSP 1 DROP OPHTH (09:20)
--- NOTE | 2024-06-07 10:50 | W.PN.HOSP.TC ---
Today's Communication/Plan
-
Dc home today.
Assessment / Plan
Assessment / Plan
Impression:
83-year-old with history of PE/DVT, atrial fibrillation, is on chronic anticoagulation and has a chronic left lower extremity DVT presents to the emergency department with redness and swelling in the left lower extremity. Complains of shooting pain
with pressure when he attempts to walk on that feet. No fevers or chills. On my examination there is painful tender plaque with erythema and mild induration. ultrasound again shows a chronic DVT. Continues Xarelto, CT scan shows multiple areas
of atheromatous disease. seen by vascular surgery, no intervention, vascular signed off.
overall improved, will be discharged home on toradol and Augmentin.
Assessment/plan:
Cellulitis - acute pain, swelling, tenderness and erythema c/w acute cellulitis. Non-purulent. Diabetes but no ulcer.
- admit to med/surg observation
- IV cefazolin for now
- keep leg elevated
- pain control
06/07
overall improved, will be discharged home on toradol and Augmentin.
DVT - Discussed extensively with Dr. Aguilera. Feels clot is chronic and has been previously seen. Patient is appropriately anticoagulated on Xarelto and is compliant. I agree based on my examination that this is not cerulea dolens at all.
- will continue Xarelto as recommended. He will be anticoagulated indefinitely
- check d-dimer and pt/inr
- serial examinations
- no need for further heme consult
PAD - Diffuse atherosclerosis but clearly not the etiology of his pain. Some significant stenosis noted. Possible claudication on history.
- Dr. Hayes evaluated the patient, no intervention, vascular surgery signed off.
- continue Xarelto
- continue statin
Paroxysmal A-fib
- Sinus rhythm, rate controllled
- AC on Xarelto
HTN
- continue clonidin
DM II
- lantus 34 daily
- continue jardiance a
- hold metformin x 24 hours
- sliding scale insulin
CODE STATUS: Full code
DVT prophylaxis: Xarelto
Diet: Regular diet
Total time spent on today's encounter was 55 minutes which included time spent in counseling the patient/family regarding diagnosis and treatment plan as listed above, goals of care, and symptom management. Case was discussed with nursing staff,
specialists, and care coordinators/case management. All labs and imaging personally reviewed by me. Remainder the time spent in detailed review of previous records, lab data, imaging, and other medical provider documentation.
Anticipated Discharge: Today
Subjective/Interval History
-
Date of Service: June 07, 2024
patient felling better, discussed with at bedside, will be discharge home on Augmentin,
no chest pain or shortness of breath.
Objective Data
-
Vital Signs:
Vital Signs
Temp Pulse Resp BP Pulse Ox
98.3 F 73 18 126/79 97
06/07/24 07:35 06/07/24 09:18 06/07/24 07:35 06/07/24 09:18 06/07/24 07:35
I&O
06/06/24 06/07/24 06/08/24
06:59 06:59 06:59
Intake Total 0 / 0 920 / 920
Balance 0 / 0 920 / 920
Physical Exam
-
General: Well Developed, Well Nourished, No Apparent Distress and Comfortable
HEENT: Normocephalic, Atraumatic, Moist Mucous Membranes, No Ptosis, PERRLA and Nose Appears Normal
Respiratory: Clear to Auscultation and Non Labored Respirations
Cardiac: Regular Rhythm and S1/S2
Breast: Deferred by me
GI: Soft, Nontender, Nondistended and Normal Bowel Sounds
Genito-urinary: No Costovertebral Tender
Musculoskeletal: No Clubbing, No Cyanosis and Other (Left foot dorsal aspect with mild tenderness /redness)
Skin: Warm
Neuro: Awake, Alert, Oriented, AO x 3 and No Motor Deficits
Psych: Calm
Data Reviewed
-
Diagnostic Radiology: Image personally visualized and interpreted and Report Reviewed by me
CT Scan: Image personally visualized and interpreted and Report Reviewed by me
Ultrasound: Image personally visualized and interpreted and Report Reviewed by me
MRI: Image personally visualized and interpreted and Report Reviewed by me
Medical Tests (Nuc Med, Echo etc): Image personally visualized and interpreted and Report Reviewed by me
Labs: Labs Reviewed by me
Old Records: Reviewed
--- NOTE | 2024-06-07 11:28 | CM ---
MD entered order for discharge.
UR RN indicated pt changed to inpatient .
Spoke with Mariusz she is in agreement with discharge today . She states understanding of IMM.
Offered VN she requested VN B[facility]he[facility] liaison notified lakisha SMITH.
will transport.
PLAN Home with [facility]
--- NOTE | 2024-06-07 11:40 | W.DCSUMMARY ---
Addendum entered and electronically signed by Edith Peraza MD 06/08/24 14:04:
Yes, _Cellulitis__ is related to/associated with/due to _Diabetes
Original Note:
Discharge Summary
Discharge Data
Date of Admission: 06/07/24
Date of Discharge: 06/07/24
-
Pending Results: No
Hospital Course
Hospital course
83-year-old with history of PE/DVT, atrial fibrillation, is on chronic anticoagulation and has a chronic left lower extremity DVT presents to the emergency department with redness and swelling in the left lower extremity. Complains of shooting pain
with pressure when he attempts to walk on that feet. No fevers or chills. On my examination there is painful tender plaque with erythema and mild induration. ultrasound again shows a chronic DVT. Continues Xarelto, CT scan shows multiple areas
of atheromatous disease. seen by vascular surgery, no intervention, vascular signed off.
overall improved, will be discharged home on toradol and Augmentin.
During hospitalization patient was treated from the [facility]
Cellulitis - acute pain, swelling, tenderness and erythema c/w acute cellulitis. Non-purulent. Diabetes but no ulcer.
- admit to med/surg observation
- IV cefazolin for now
- keep leg elevated
- pain control
06/07
overall improved, will be discharged home on toradol and Augmentin.
DVT - Discussed extensively with Dr. Aguilera. Feels clot is chronic and has been previously seen. Patient is appropriately anticoagulated on Xarelto and is compliant. I agree based on my examination that this is not cerulea dolens at all.
- will continue Xarelto as recommended. He will be anticoagulated indefinitely
- check d-dimer and pt/inr
- serial examinations
- no need for further heme consult
PAD - Diffuse atherosclerosis but clearly not the etiology of his pain. Some significant stenosis noted. Possible claudication on history.
- Dr. Hayes evaluated the patient, no intervention, vascular surgery signed off.
- continue Xarelto
- continue statin
Paroxysmal A-fib
- Sinus rhythm, rate controllled
- AC on Xarelto
HTN
- continue clonidin
DM II
- lantus 34 daily
- continue jardiance a
- hold metformin x 24 hours
- sliding scale insulin
CODE STATUS: Full code
DVT prophylaxis: Xarelto
Diet: Regular diet
Total time spent on today's encounter was 40 minutes which included time spent in counseling the patient/family regarding diagnosis and treatment plan as listed above, goals of care, and symptom management. Case was discussed with nursing staff,
specialists, and care coordinators/case management. All labs and imaging personally reviewed by me. Remainder the time spent in detailed review of previous records, lab data, imaging, and other medical provider documentation.
Anticipated Discharge: Today
Discharge Plan
-
Patient Disposition: Home with Home Care
Discharge Diagnosis/Procedures: cellulitis
DVT
PVD
HTN
Diet: Diabetic, Carb Controlled
Activity: With assistance and As tolerated
Referrals:
Christophe Hayes MD [Active] - 07/13/24 2:00 pm
Sebas Evans MD [Family Provider] -
Prescriptions:
New
oxycodone 5 mg Tablet
5 mg PO Q4HPRN PRN (Reason: moderate pain) Qty: 0 0RF
cephalexin 500 mg capsule
500 mg PO Q6H 7 Days Qty: 28 0RF
ketorolac 10 mg tablet
10 mg PO Q6H PRN (Reason: Pain) 5 Days Qty: 20 0RF
donepezil 10 mg Tablet
10 mg PO HS Qty: 0 0RF
dapagliflozin propanediol 10 mg Tablet
10 mg PO DAILY Qty: 0 0RF
gabapentin 300 mg Capsule
300 mg PO Q6 Qty: 0 0RF
memantine 10 mg Tablet
5 mg PO BID Qty: 0 0RF
Continued
lorazepam 0.5 MG tablet
0.5 mg PO TID
metformin 500 MG tablet
1,000 mg PO BID
atorvastatin 40 MG tablet
40 mg PO QPM
fluticasone propion-salmeterol [Advair Diskus] 1 DISK blister with device
1 puff inhalation BID
albuterol sulfate [Proventil] 2.5 MG/3 ML solution for nebulization
2.5 mg inhalation PRN PRN (Reason: asthma)
sildenafil [Viagra] 50 MG tablet
100 mg PO PRN PRN (Reason: ed)
Patient Comments:
patient unsure of last dose taken
fluvoxamine 50 MG tablet
100 mg PO QPM
epinephrine [EpiPen] 0.3 MG/0.3/SYRINGE auto-injector
0.3 mg IM PRN PRN (Reason: allergic reaction)
Patient Comments:
last used about 2 months ago
clonidine HCl 0.1 MG tablet
0.1 mg PO BID
insulin glargine [Lantus Solostar U-100 Insulin] 300 UNITS/3 ML insulin pen
33 units SC HS
insulin aspart U-100 [Novolog FlexPen U-100 Insulin] 300 UNITS/3 ML insulin pen
0 units SC DAILY
Patient Comments:
80-120 5units; 121-150 6 units; 151-200 7 units; >200 8 units (noted 10/29/15).
pantoprazole 40 MG tablet,delayed release (DR/EC)
40 mg PO DAILY Qty: 30 0RF
rivaroxaban [Xarelto] 20 MG tablet
20 mg PO QPM Qty: 0 0RF
Rx Instructions:
Hold for additional 14 days, then ok to resume.
oxycodone 5 mg tablet
5 mg PO Q8H PRN (Reason: Pain) Qty: 9 0RF
Discharge Orders:
Discharge Patient (As Directed); Ordered 06/07/24
Ordered By: Edith Peraza
Discharge Date and Time
Print Language: SLOVAK
[2024-06-07 11:41] LABS: Glucose - Point of Care 199 mg/dl (70-99)
--- NOTE | 2024-06-07 12:03 | VNURNOTE ---
Home Health Liaison spoke with patient's spouse Mariusz to discuss [facility] nurse/therapy, visits, schedule and homebound status. Spouse is agreeable and understands that visits at home will be 2-3 x per week to assess and teach medical management.
Spouse is aware [facility] for [facility] care in 1-2 days after discharge from . Discussed case w/[facility] area supervisor and appears that pt can receive both [facility] and continue w/[facility] program.
[facility] referral completed in [facility].
[2024-06-07] MEDS: NOVOLOG FLEXPEN-MODERATE RESISTANCE 1 UNITS SC (13:19)
[2024-06-07 15:05] VITALS: BP 105/64
--- NOTE | 2024-06-08 10:02 | PN.CDI ---
CDI
- -
CDI:
Physician Documentation Request
Admit Date: 06/07/24 08:42
Dear Doctor Karmen
Please review the following and provide your response in the progress notes.
Clinical Indicators:
Patient presents with Left foot cellulitis. Patient has DM II.
Additional clinical indicators:
Vascular consult: I do not think this is a vascular mediated L foot pain/tenderness... this is not a venous driven pathology either.
Please clarify the relationship between these conditions;
Yes, _Cellulitis__ is related to/associated with/due to _Diabetes _.
No, _Cellulitis__ is not related to/associated with/due to Diabetes___ but it is due to ___. (Please specify)
Unable to determine
Use of terms such as suspected, likely, concern for, or probable (associated with a specific diagnosis that is being evaluated, monitored, or treated as if it exists) are acceptable and can be coded in the inpatient setting, when documented at the
time of discharge.
Thank you,
Katya Bales
[facility]
Please use your independent medical judgment in providing your response.
== END 2024-06-07 15:51 | disposition home health service (06) | DRG 638 ==
LOC: 4 EAST ACU 08:42
PROVIDERS: ADMITTING PHYSICIAN Internal Medicine; ATTENDING PHYSICIAN General Practice; CONSULT PHYSICIAN Surgery Vascular Surgery; EMERGENCY PHYSICIAN Emergency Medicine; FAMILY PHYSICIAN Family Medicine
DX: E11.628 Type 2 diabetes mellitus with other skin complications (principal); L03.116 Cellulitis of left lower limb; I82.512 Chronic embolism and thrombosis of left femoral vein; E11.51 Type 2 diabetes mellitus with diabetic peripheral angiopathy without gangrene; I10 Essential (primary) hypertension; I48.0 Paroxysmal atrial fibrillation; J44.89 Other specified chronic obstructive pulmonary disease; F03.90 Unspecified dementia, unspecified severity, without behavioral disturbance, psychotic disturbance, mood disturbance, and anxiety; Z79.4 Long term (current) use of insulin; Z79.84 Long term (current) use of oral hypoglycemic drugs; Z79.899 Other long term (current) drug therapy; Z79.01 Long term (current) use of anticoagulants; Z86.711 Personal history of pulmonary embolism; Z91.041 Radiographic dye allergy status; Z95.828 Presence of other vascular implants and grafts; Z96.641 Presence of right artificial hip joint
CPT/HCPCS: 75635; 80048; 80053; 82962; 83735; 84550; 85025; 85379; 85610; 93005; 93971; 94640; 96374; 96375; 99285; Q9967

== ENCOUNTER → 2024-09-21 10:06 | Outpatient (REF) | payer MEDICARE, OTHER, SELFPAY ==
[2024-09-21 12:24] LABS: ALT (SGPT) 19 U/L (0-50); AST (SGOT) 24 U/L (17-59); Albumin 4.3 g/dl (3.5-5.0); Alkaline Phosphatase 83 U/L (38-126); Blood Urea Nitrogen 22 mg/dl (9-20); Calcium 8.8 mg/dl (8.4-10.2); Carbon Dioxide 29 mmol/L (22-30); Chloride 105 mmol/L (98-107); Glucose 110 mg/dl (70-99); HDL Cholesterol 84 mg/dl; LDL Cholesterol, Calculated 82 mg/dl; Potassium 4.5 mmol/L (3.5-5.1); Sodium 141 mmol/L (135-145); Total Protein 7.0 g/dl (6.3-8.2); Very Low Density Lipoprotein 11 mg/dl (0-30); eGFR > 60.00
[2024-09-21 12:27] LABS: Microalb - Urine Creatinine 79.600 mg/dl
[2024-09-21 12:32] LABS: Microalbumin, Random Urine 1.2 mg/dl (0.6-1.7)
[2024-09-21 12:39] LABS: Free T3 2.83 pg/ml (2.77-5.27)
[2024-09-21 12:52] LABS: TSH 0.37 uIU/ml (0.47-4.68)
[2024-09-21 14:21] LABS: Glycohemoglobin (HgbA1c) 7.4 % (4.0-5.6)
== END ==
LOC: HWLAB 10:06
PROVIDERS: ATTENDING PHYSICIAN Internal Medicine Endocrinology, Diabetes & Metabolism
DX: E11.65 Type 2 diabetes mellitus with hyperglycemia (principal); Z79.4 Long term (current) use of insulin; E78.5 Hyperlipidemia, unspecified; E05.90 Thyrotoxicosis, unspecified without thyrotoxic crisis or storm
CPT/HCPCS: 36415; 80053; 80061; 82043; 82570; 83036; 84439; 84443; 84481

== ENCOUNTER → 2024-12-20 09:12 | Outpatient (REF) | payer MEDICARE, OTHER, SELFPAY ==
[2024-12-20 13:12] LABS: ALT (SGPT) 21 U/L (0-50); AST (SGOT) 21 U/L (17-59); Albumin 4.2 g/dl (3.5-5.0); Alkaline Phosphatase 99 U/L (38-126); Blood Urea Nitrogen 22 mg/dl (9-20); Calcium 8.9 mg/dl (8.4-10.2); Carbon Dioxide 32 mmol/L (22-30); Chloride 100 mmol/L (98-107); Glucose 101 mg/dl (70-99); HDL Cholesterol 73 mg/dl; LDL Cholesterol, Calculated 76 mg/dl; Potassium 4.3 mmol/L (3.5-5.1); Sodium 140 mmol/L (135-145); Total Protein 6.9 g/dl (6.3-8.2); Very Low Density Lipoprotein 10 mg/dl (0-30); eGFR > 60.00
[2024-12-20 13:15] LABS: Glycohemoglobin (HgbA1c) 7.3 % (4.0-5.9)
[2024-12-20 13:44] LABS: Free T3 3.36 pg/ml (2.77-5.27)
[2024-12-20 13:57] LABS: TSH 0.18 uIU/ml (0.47-4.68)
== END ==
LOC: HWLAB 09:12
PROVIDERS: ATTENDING PHYSICIAN Internal Medicine Endocrinology, Diabetes & Metabolism; FAMILY PHYSICIAN Family Medicine
DX: E11.65 Type 2 diabetes mellitus with hyperglycemia (principal); Z79.4 Long term (current) use of insulin; E78.5 Hyperlipidemia, unspecified; E05.90 Thyrotoxicosis, unspecified without thyrotoxic crisis or storm
CPT/HCPCS: 36415; 80053; 80061; 83036; 84439; 84443; 84481